=== PATIENT | female | born 1995 | race Caucasian/White ===

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

== ENCOUNTER 2017-02-09 22:14 | Outpatient (CLI) | payer MEDICAID ==
[2017-02-17] MEDS ORDERED: COLACE-DPS100 MG PO (10:28)
[2017-02-17] MEDS ORDERED: TYLENOL EXTRA500 M1 PO (10:28)
[2017-02-17] MEDS ORDERED: PRENATAL VIT1 TAB PO (10:28)
[2017-02-17] MEDS ORDERED: MOTRIN-DPS800 MG PO (10:28)
[2017-02-17] MEDS ORDERED: NORETHINDRONE0.35 MG PO (10:29)
[2017-02-17] MEDS ORDERED: LAN-O-SOOTHE7 GM TP (10:29)
== END 2017-02-10 00:37 | disposition home or self-care (01) ==
LOC: 2LDRP 22:14 → BC 22:14
DX: O47.1 False labor at or after 37 completed weeks of gestation (principal); O42.92 Full-term premature rupture of membranes, unspecified as to length of time between rupture and onset of labor; Z3A.38 38 weeks gestation of pregnancy

== ENCOUNTER 2017-02-10 22:10 | Outpatient (CLI) | payer MEDICAID ==
[2017-02-17] MEDS ORDERED: PRENATAL VIT1 TAB PO (10:28)
[2017-02-17] MEDS ORDERED: COLACE-DPS100 MG PO (10:28)
[2017-02-17] MEDS ORDERED: TYLENOL EXTRA500 M1 PO (10:28)
[2017-02-17] MEDS ORDERED: MOTRIN-DPS800 MG PO (10:28)
[2017-02-17] MEDS ORDERED: NORETHINDRONE0.35 MG PO (10:29)
[2017-02-17] MEDS ORDERED: LAN-O-SOOTHE7 GM TP (10:29)
== END 2017-02-11 01:05 | disposition home or self-care (01) ==
LOC: BC 22:10 → 2LDRP 22:10 → BC 02-11 01:05
DX: O47.1 False labor at or after 37 completed weeks of gestation (principal); Z3A.38 38 weeks gestation of pregnancy

== ENCOUNTER 2017-02-14 06:30 | Outpatient (CLI) | payer MEDICAID ==
[2017-02-17] MEDS ORDERED: MOTRIN-DPS800 MG PO (10:28)
[2017-02-17] MEDS ORDERED: PRENATAL VIT1 TAB PO (10:28)
[2017-02-17] MEDS ORDERED: TYLENOL EXTRA500 M1 PO (10:28)
[2017-02-17] MEDS ORDERED: COLACE-DPS100 MG PO (10:28)
[2017-02-17] MEDS ORDERED: NORETHINDRONE0.35 MG PO (10:29)
[2017-02-17] MEDS ORDERED: LAN-O-SOOTHE7 GM TP (10:29)
== END 2017-02-14 11:10 | disposition home or self-care (01) ==
LOC: 2LDRP 06:30 → BC 06:30
DX: O47.1 False labor at or after 37 completed weeks of gestation (principal); Z3A.39 39 weeks gestation of pregnancy

== ENCOUNTER 2017-02-14 14:41 | Inpatient (IN) | payer MEDICAID ==
[~2017-02-14] VITALS: Ht 160 cm; Wt 69.9 kg
--- NOTE | ~2017-02-14 | FD ---
ADMIT: 02/14/2017 RM/LOC: 228 [facility] MR#: [id number] [address] [address] YOLANDA FONTANA [address] [address] Final Diagnosis SEX: F AGE: 21 : 1995 ADMISSION DATE: 02/14/2017 DISCHARGE DATE: 02/16/2017 FINAL DIAGNOSES: 1. A 21-year-old, 1, para 1-0-0-1 status post spontaneous vaginal delivery at 39 weeks 2 days. 2. Uncomplicated . PROCEDURE: 1. Spontaneous vaginal delivery. 2. Epidural catheter removal and placement. Lori Mathews MD Resident / Zaira Martinez MD / richard JOB #: [id number] CC: Chioma Johnson MD, Attending Physician Chioma Johnson MD, Family Physician
--- NOTE | ~2017-02-14 | OR ---
ADMIT: 02/14/2017 RM/LOC: 228 [facility] MR#: [id number] [address] [address] YOLANDA FONTANA 1003 [place] [address] Operative/Delivery Room Report SEX: F AGE: 21 : 1995 SURGERY DATE: 02/14/2017 SURGEON: Zaira Martinez MD NAME OF PROCEDURE: Removal of epidural catheter. INDICATIONS FOR PROCEDURE: The patient is a 21-year-old, 1, para 0, who presented to Labor and Delivery at 39-2/7th weeks' gestation in active labor. The patient had an epidural placed for pain control during labor. DESCRIPTION OF PROCEDURE: Following spontaneous vaginal delivery, the patient was placed in a sitting position and the patient's epidural catheter was removed without difficulty. The blue tip was noted to be intact. Zaira Martinez MD/ abdoul JOB #: [id number] CC: Chioma Johnson, Attending Physician Chioma Johnson, Family Physician
[2017-02-17] MEDS ORDERED: COLACE-DPS100 MG PO (10:28)
[2017-02-17] MEDS ORDERED: MOTRIN-DPS800 MG PO (10:28)
[2017-02-17] MEDS ORDERED: TYLENOL EXTRA500 M1 PO (10:28)
[2017-02-17] MEDS ORDERED: PRENATAL VIT1 TAB PO (10:28)
[2017-02-17] MEDS ORDERED: NORETHINDRONE0.35 MG PO (10:29)
[2017-02-17] MEDS ORDERED: LAN-O-SOOTHE7 GM TP (10:29)
--- NOTE | 2017-03-20 08:35 | OR ---
ADMIT: 02/14/2017 RM/LOC: 228 [facility] [place] MR#: [id number] [address] [address] YOLANDA FONTANA [facility] [address] Operative/Delivery Room Report SEX: F AGE: 21 : 1995 Corrected: 02/16/2017 0638 njv SURGERY DATE: 02/14/2017 SURGEON: Zaira Martinez MD NAME OF PROCEDURE: Spontaneous vaginal delivery. PHARMACY TECHNICIAN INSTRUCTOR: Lori Mathews MD Resident. PREOPERATIVE DIAGNOSES: 1. Intrauterine at 39-2/7th weeks' gestation. 2. Active labor. POSTOPERATIVE DIAGNOSES: 1. Intrauterine at 39-2/7th weeks' gestation. 2. Active labor. FINDINGS: Liveborn female , scores 8 at 1 minute, 9 at 5 minutes, weight 7 pounds 0 ounces. ESTIMATED BLOOD LOSS: 150 mL. ANESTHESIA: Epidural. COMPLICATIONS: None. INDICATIONS FOR PROCEDURE: The patient is a 21-year-old, 1, para 0, who presented to Labor and Delivery at 39-2/7th weeks' gestation. The patient presented with complaints of contractions. The patient was noted to have cervical change on admission and was admitted in active labor. The patient then progressed spontaneously through labor to completely dilated and pushed, bringing the infant's vertex to the perineum. DESCRIPTION OF PROCEDURE: The patient was noted to be complete and pushing, and so was placed in dorsal lithotomy position. She was prepped and draped in the usual sterile fashion. The patient was asked to push. The 's vertex ADMIT: 02/14/2017 RM/LOC: 228 [facility] [place] MR#: [id number] [address] [address] [place]MUNAYOLANDA [place] [address] [address] Operative/Delivery Room Report SEX: F AGE: 21 : 1995 delivered in the occiput anterior position over midline. The then restituted to the right occiput anterior position. The anterior shoulder delivered and the posterior shoulder followed, and the remainder of the delivered without difficulty as well. The infant was dried and handed off to the mother's abdomen where nursing personnel were in attendance. 20 units of Pitocin were placed in IV bag to firm the uterus. The cervix was examined and was noted to be free of lacerations. The vaginal vault and perineum were examined and were also noted to be free of lacerations. The patient tolerated the procedure well. All sponge and needle counts were correct. The patient and her recovered in the room in stable condition. Zaira Martinez MD/ abdoul JOB #: [id number] CC: Chioma Johnson, Attending Physician Chioma Johnson, Family Physician Corrected: 02/16/2017 0638 njv
--- NOTE | 2017-03-20 08:35 | HP ---
ADMIT: 02/14/2017 RM/LOC: 228 [facility] MR#: [id number] [address] [place] [id number] YOLANDA FONTANA [address] [place] [address] History and Physical SEX: F AGE: 21 : 1995 DATE OF SERVICE: REASON FOR ADMISSION: Contractions. HISTORY OF PRESENT ILLNESS: The patient is a 21-year-old, 1, para 0, who presented to Labor and Delivery at 39-2/7th weeks' gestation by last menstrual period with estimated date of confinement 02/19/2017. The patient's had been uncomplicated. LABORATORY DATA: Blood type O positive, antibody screen negative, RPR nonreactive, rubella immune, group B Strep negative, HIV negative, gonorrhea and chlamydia negative, hepatitis B surface antigen negative. PAST MEDICAL HISTORY: Noncontributory. PAST SURGICAL HISTORY: Tonsils and adenoids in 2004, right year cystectomy in 2013, left medial canthi soft tissue excision in 2015. CURRENT MEDICATIONS: vitamins daily. ALLERGIES: NO KNOWN MEDICAL ALLERGIES. FAMILY HISTORY: Mother with Cuate's thyroiditis and uncle with seizure disorder. SOCIAL HISTORY: The patient is single. She denies any alcohol, tobacco, or drug use. PHYSICAL EXAMINATION: VITAL SIGNS: On admission, blood pressure 111/75, pulse 85, temperature 97.6, respirations 20. GENERAL: The patient is alert and oriented, no acute distress. HEART: Regular rate and rhythm without murmurs, gallops, or rubs. LUNGS: Clear to auscultation bilaterally. ADMIT: 02/14/2017 RM/LOC: 228 [facility] MR#: [id number] [id number] [place] [id number] YOLANDA FONTANA [address] [place] [address] History and Physical SEX: F AGE: 21 : 1995 ABDOMEN: Soft, nontender, gravid. EXTREMITIES: No edema. No calf tenderness. heart tones are in the 120s with moderate variability and accelerations present. Contractions are every 3-5 minutes. Cervix is 3 cm dilated, 100% effaced, and +1 station. ASSESSMENT: 1. A 21-year-old, 1, para 0, at 39-2/7th weeks' gestation. 2. Active labor. PLAN: Plan to admit in labor and anticipate a spontaneous vaginal delivery. Zaira Martinez MD/ abdoul JOB #: [id number] CC: Chioma Johnson, Attending Physician Chioma Johnson, Family Physician
== END 2017-02-16 11:44 | disposition home or self-care (01) | DRG 775 ==
LOC: BC 14:41 → 2LDRP 14:41 → BC 02-19 14:06
PROVIDERS: ADMIT Obstetrics & Gynecology
PROC: 10E0XZZ Delivery of Products of Conception, External Approach (ICD-10-PCS; principal; 2017-02-14)
DX: O80 Encounter for full-term uncomplicated delivery (principal); Z37.0 Single live birth; Z3A.39 39 weeks gestation of pregnancy